=== PATIENT | female | born 1970 | race Caucasian/White ===

== ENCOUNTER 2017-04-24 13:49 | Emergency (ER) | payer SELFPAY ==
[2017-04-24] MEDS ORDERED: solu-MEDROL 125 MG IV ONE (14:11)
[2017-04-24] MEDS ORDERED: PROVENTIL 2.5 MG/3 ML NEB IH ONE ×2 (14:11→14:19)
[2017-04-24] MEDS ORDERED: TORAdol 30 mg Injection IV ONE (14:13)
[2017-04-24] MEDS ORDERED: Zofran 4 MG/2 ML VIAL IV ONE (14:13)
[2017-04-24] MEDS ORDERED: solu-MEDROL 125 MG ONE (14:18)
[2017-04-24] MEDS ORDERED: Zofran 4 MG/2 ML VIAL ONE (14:18)
[2017-04-24] MEDS ORDERED: TORAdol 30 mg Injection ONE (14:18)
--- NOTE | 2017-04-24 14:18 | ERPHSYRPT ---
- History of Present Illness Time Seen by Provider: 04/24/17 14:14 Historian: patient Exam Limitations: no limitations Patient Subjective Stated Complaint: pt states at 0300 this morning she began having chest pain. states pain is worse with movement and palpation. pt states she has had a cough and sorethroat. Triage Nursing Assessment: pt pink, warm, dry. lung sounds clear and equal. pt afebrile. Physician History: The patient is a 46-year-old female who is here with her for work from [place], complaining of chest pain that began at 3 AM or 12 hours ago, mild shortness of breath, sweats, and nausea. She has no cardiac history. She does have asthma and complains that she doesn't know where her albuterol inhaler is because she hasn't passed it yet. Timing/Duration: today, hour(s) (12) Activities at Onset: none Quality: stabbing Location: substernal Chest Pain Radiation: no radiation Severity of Pain-Max: mild Severity of Pain-Current: mild Modifying Factors: Improves With: breathing, coughing Associated Symptoms: nausea, shortness of breath, cough, chills Prior Chest Pain/Cardiac Workup: no prior chest pain Nitro Today/Relief: no nitro taken today Aspirin Treatment Today: no aspirin today Allergies/Adverse Reactions: prochlorperazine [From Compazine] Allergy (Verified 04/24/17 14:03) aspirin Adverse Reaction (Verified 04/24/17 14:03) ciprofloxacin [From Cipro] Adverse Reaction (Verified 04/24/17 14:03) sulfamethoxazole [From Bactrim] Adverse Reaction (Verified 04/24/17 14:03) trimethoprim [From Bactrim] Adverse Reaction (Verified 04/24/17 14:03) Home Medications: Phenytoin Sodium Extended [Dilantin] 300 mg PO HS 04/24/17 [History] Hx Tetanus, Diphtheria Vaccination/Date Given: Yes (up to date) Hx Influenza Vaccination/Date Given: Yes Hx Pneumococcal Vaccination/Date Given: No Immunizations Up to Date: Yes - Review of Systems Constitutional: Chills Eyes: No Symptoms Ears, Nose, & Throat: No Symptoms Respiratory: Cough, Dyspnea Cardiac: Chest Pain, No Edema, No Syncope Abdominal/Gastrointestinal: Nausea, No Abdominal Pain, No Vomiting, No Diarrhea Genitourinary Symptoms: No Dysuria Musculoskeletal: No Back Pain, No Neck Pain Skin: No Rash Neurological: No Dizziness, No Focal Weakness, No Sensory Changes Psychological: No Symptoms Endocrine: No Symptoms Hematologic/Lymphatic: No Symptoms Immunological/Allergic: No Symptoms All Other Systems: Reviewed and Negative - Past Medical History Pertinent Past Medical History: Yes Neurological History: Epilepsy Respiratory History: Asthma - Past Surgical History Past Surgical History: Yes Gastrointestinal: Cholecystectomy Musculoskeletal: Orthopedic Surgery Female Surgical History: Hysterectomy, Tubal Ligation Other Surgical History: neck and back. arm surgery. bladder. kidney - Social History Smoking Status: Former smoker Exposure to second hand smoke: Yes Drug Use: none Patient Lives Alone: No - Nursing Vital Signs Nursing Vital Signs: Initial Vital Signs Temperature 98.0 F 04/24/17 13:50 Pulse Rate 83 04/24/17 13:50 Respiratory Rate 20 04/24/17 13:50 Blood Pressure 132/56 04/24/17 13:50 O2 Sat by Pulse Oximetry 100 04/24/17 13:50 Pain Scale Pain Intensity 8 - Physical Exam General Appearance: no apparent distress, alert Eye Exam: PERRL/EOMI, eyes nml inspection Ears, Nose, Throat Exam: normal ENT inspection, moist mucous membranes Neck Exam: normal inspection, non-tender, supple, full range of motion Respiratory Exam: normal breath sounds, chest tenderness (reproduces pain), lungs clear, No respiratory distress Cardiovascular Exam: regular rate/rhythm, normal heart sounds Pelvic Exam: not done Rectal Exam: not done Back Exam: normal inspection, No CVA tenderness, No vertebral tenderness Extremity Exam: normal inspection, normal range of motion Neurologic Exam: alert, oriented x 3, cooperative, normal mood/affect, sensation nml, No motor deficits Skin Exam: normal color, warm, dry SpO2 Interpretation: normal SpO2: 100 Oxygen Delivery: Room Air - Course EKG Interpreted by Me: RATE, Sinus Rhythm, NORMAL AXIS, NORMAL INTERVALS, NORMAL QRS, NORMAL ST-T - Radiology Exams Chest X-ray Interpretation: Interpreted by me, Negative Ordered Tests: Active Orders 24 hr Category Date Time Status Precision D[place] STAT Care 04/24/17 14:05 Active EKG-ER Only STAT Care 04/24/17 14:05 Active IV Insertion STAT Care 04/24/17 14:05 Active CHEST 2 VIEWS (PA AND LAT) Stat Exams 04/24/17 14:12 Taken CBC W DIFF Stat Lab 04/24/17 14:15 Completed CMP Stat Lab 04/24/17 14:15 Completed NT PRO BNP Stat Lab 04/24/17 14:15 Completed TROPONIN Q3H Lab 04/24/17 14:15 Completed TROPONIN Q3H Lab 04/24/17 17:15 Ordered TROPONIN Q3H Lab 04/24/17 20:15 Ordered TROPONIN Q3H Lab 04/24/17 23:15 Ordered TROPONIN Q3H Lab 04/25/17 02:15 Ordered Respiratory Nebulizer STAT RT 04/24/17 14:13 Completed Medication Summary Discontinued Medications Generic Name Dose Route Start Last Admin Trade Name Freq PRN Reason Stop Dose Admin Albuterol Sulfate 2.5 mg 04/24/17 14:11 04/24/17 14:29 Proventil 2.5 Mg/3 Ml Neb IH 04/24/17 14:12 2.5 mg STAT ONE Administration Albuterol Sulfate Confirm 04/24/17 14:19 Proventil 2.5 Mg/3 Ml Neb Administered 04/24/17 14:20 Dose 2.5 mg IH .STK-MED ONE Ketorolac Tromethamine 30 mg 04/24/17 14:13 04/24/17 14:20 Toradol 30 Mg Injection IV 04/24/17 14:14 30 mg STAT ONE Administration Ketorolac Tromethamine Confirm 04/24/17 14:18 Toradol 30 Mg Injection Administered 04/24/17 14:19 Dose 30 mg .ROUTE .STK-MED ONE Methylprednisolone Sodium Succinate 125 mg 04/24/17 14:11 04/24/17 14:20 Solu-Medrol 125 Mg IV 04/24/17 14:12 125 mg STAT ONE Administration Methylprednisolone Sodium Succinate Confirm 04/24/17 14:18 Solu-Medrol 125 Mg Administered 04/24/17 14:19 Dose 125 mg .ROUTE .STK-MED ONE Ondansetron HCl 4 mg 04/24/17 14:13 04/24/17 14:19 Zofran 4 Mg/2 Ml Vial IV 04/24/17 14:14 4 mg STAT ONE Administration Ondansetron HCl Confirm 04/24/17 14:18 Zofran 4 Mg/2 Ml Vial Administered 04/24/17 14:19 Dose 4 mg .ROUTE .STK-MED ONE Lab/Rad Data: Laboratory Result Diagrams 04/24/17 14:15 04/24/17 14:15 Laboratory Results 04/24/17 04/24/17 04/24/17 Range/Units 14:15 14:15 14:15 WBC 6.0 (4.0-10.5) K/mm3 RBC 5.02 (4.1-5.4) M/mm3 Hgb 14.8 (12.0-16.0) gm/dl Hct 45.1 (35-47) % MCV 89.8 (78-100) fl MCH 29.5 (26-32) pg MCHC 32.8 (32-36) g/dl RDW 13.6 (11.5-14.0) % Plt Count 243 (150-450) K/mm3 MPV 10.6 H (6-9.5) fl Gran % 58.6 (36.0-66.0) % Lymphocytes % 29.8 (24.0-44.0) % Monocytes % 8.3 (0.0-12.0) % Eosinophils % 3.0 (0.00-5.0) % Basophils % 0.3 (0.0-0.4) % Basophils # 0.02 (0-0.4) Sodium 141 (136-145) mEq/L Potassium 3.5 (3.5-5.1) mEq/L Chloride 103 (98-107) mEq/L Carbon Dioxide 29.5 (21-32) mEq/L Anion Gap 12.4 (5-15) MEQ/L BUN 11 (9-20) mg/dL Creatinine 0.81 (0.55-1.30) mg/dl Estimated GFR > 60 ML/MIN Glucose 96 (70-110) MG/DL Calcium 9.2 (8.5-10.1) mg/dL Total Bilirubin 0.20 (0.2-1.0) mg/dL AST 12 L (15-37) U/L ALT 17 (12-78) U/L Alkaline Phosphatase 153 H (46-116) U/L Troponin I < 0.017 (0.000-0.056) ng/ml NT-Pro-B Natriuret Pep 95 (0-125) pg/ml Serum Total Protein 8.1 (6.4-8.2) gm/dL Albumin 3.8 (3.4-5.0) g/dL - Progress Progress: improved ( an old multiple) Air Movement: good Blood Culture(s) Obtained: No Antibiotics given: No Counseled pt/family regarding: lab results, diagnosis, rad results - Departure Time of Disposition: 15:24 Departure Disposition: Home Clinical Impression: Musculoskeletal chest pain, Dyspnea Condition: Stable Critical Care Time: No Additional Instructions: You have musculoskeletal chest pain and mild shortness of breath. You were given a breathing treatment of albuterol, Toradol 30 mg by IV, and Solu-Medrol 125 mg by IV in the ER. Continue with your breathing treatments at home as needed. Follow-up as needed.
[2017-04-24 14:43] LABS: BASOPHIL % 0.3 % (0.0-0.4); Granulocytes % 58.6 % (36.0-66.0); Lymphocytes % 29.8 % (24.0-44.0); Mean Cell Volume 89.8 fl (78-100); Mean Corpuscular Hemoglobin 29.5 pg (26-32); Mean Platelet Volume 10.6 fl (6-9.5); Monocytes % 8.3 % (0.0-12.0); Platelet Count 243 K/mm3 (150-450); Red Blood Count 5.02 M/mm3 (4.1-5.4); Red Cell Distribution Width 13.6 % (11.5-14.0)
[2017-04-24 15:14] LABS: ALBUMIN 3.8 g/dL (3.4-5.0); ALKALINE PHOSPHATASE 153 U/L (46-116); ANION GAP 12.4 MEQ/L (5-15); BLOOD UREA NITROGEN 11 mg/dL (9-20); CHLORIDE 103 mEq/L (98-107); Carbon Dioxide 29.5 mEq/L (21-32); Glucose 96 MG/DL (70-110); Potassium 3.5 mEq/L (3.5-5.1); SGOT/AST 12 U/L (15-37); SGPT/ALT 17 U/L (12-78); SODIUM 141 mEq/L (136-145); Total Protein 8.1 gm/dL (6.4-8.2)
[2017-04-24 15:27] VITALS: O2SAT 100
[2017-04-24 15:39] VITALS: BP 119/70; PULSE 78
--- NOTE | 2017-04-24 18:10 | XRAY ---
Indication: Chest pain. Comparison: None PA/lateral chest demonstrates normal heart and lungs. Bony thorax intact with previous lower cervical fusion surgery.
== END 2017-04-24 15:39 | disposition home or self-care (01) ==
LOC: ED 13:49
DX: R07.89 Other chest pain (principal); R06.00 Dyspnea, unspecified; R11.0 Nausea; R05 Cough
CPT/HCPCS: 36000; 36415; 71020; 80053; 83880; 84484; 85025; 93005; 93041; 94640; 96374; 96375; 99284; J1885; J2405; J2930; A9270-GY